=== PATIENT | male | born 1970 | race Caucasian/White ===

== ENCOUNTER → 2021-06-02 | Outpatient (CLI) | payer OTHER ==
--- NOTE | 2021-06-02 07:50 | US ---
EXAMINATION TYPE: US abdomen complete DATE OF EXAM: 06/02/2021 COMPARISON: CLINICAL HISTORY: R10.31 RLQ Abd pain. Patient states having a history of renal stones EXAM MEASUREMENTS: Liver Length: 15.3 cm Gallbladder Wall: 0.2 cm CBD: 0.6 cm Spleen: 10.6 cm Right Kidney: 11.2 x 5.3 x 4.9 cm Left Kidney: 11.9 x 4.4 x 5.4 cm Pancreas: Tail obscured by overlying bowel gas, echogenic in appearance Liver: wnl Gallbladder: wnl Evidence for sonographic Barksdale's sign: neg CBD: wnl Spleen: wnl Right Kidney: lower pole cyst = 2.1 x 1.6 x 1.8 cm Left Kidney: No hydronephrosis or masses seen Upper IVC: wnl Abd Aorta: Proximal obscured by overlying bowel gas. No AAA visualized. The liver is homogenous. The intrahepatic portion of the IVC and proximal abdominal aorta are within normal limits. There is no evidence of cholelithiasis. Common bile duct is unremarkable. The visu alized portions of the pancreas are homogenous. The spleen is unremarkable. Kidneys are symmetric a nd free of hydronephrosis. IMPRESSION: Lower pole of right renal cyst.
== END | disposition home or self-care (01) ==
LOC: RADUSWWP 07:07
PROVIDERS: ATTEND Family Medicine
DX: N28.1 Cyst of kidney, acquired (principal); R10.31 Right lower quadrant pain
CPT/HCPCS: 76700